=== PATIENT | female | born 1950 | race Caucasian/White ===

== ENCOUNTER 2018-09-20 07:17 | Day surgery (SDC) | payer OTHER, MEDICARE ==
[2018-09-20 07:51] VITALS: BMI 23.8
[2018-09-20 08:50] VITALS: TEMP 97.5
[2018-09-20 11:15] VITALS: BP 140/78; PULSE 60
--- NOTE | 2018-09-21 16:16 | PATH ---
Surgical Pathology Report Patient Name: YUKI HER [facility]. Rec. #: [id number] /Age/Gender: 1950 (Age: 68) / F Account: [id number] Location: U-ENDOSCOPY Taken: 09/20/2018 Received: 09/20/2018 Reported: 09/21/2018 Physicians: Michelet El M.D. Specimen(s) Received A: SECOND PORTION DUODENUM AND BULB B: GASTRIC FUNDUS AND BODY POLYPS C: ANTRUM D: GE JUNCTION E: RECTAL POLYP F: SIGMOID POLYPS Clinical History Occult bleeding, family history of gastric cancer, colon polyp surveillance Postoperative diagnosis: Hiatal hernia, gastric polyps, colon polyps Final Diagnosis A. DUODENUM, SECOND PORTION AND DUODENAL BULB, BIOPSY: DUODENAL MUCOSA WITHOUT SIGNIFICANT PATHOLOGIC FINDINGS. B. STOMACH, GASTRIC FUNDUS AND BODY POLYPS, BIOPSY: FUNDIC GLAND POLYP(S). IMMUNOHISTOCHEMICAL STAIN FOR H. PYLORI IS NEGATIVE. C. STOMACH, ANTRUM, BIOPSY: GASTRIC ANTRAL MUCOSA WITH MILD CHRONIC GASTRITIS. IMMUNOHISTOCHEMICAL STAIN FOR H. PYLORI IS NEGATIVE. D. GE JUNCTION, BIOPSY: SQUAMOCOLUMNAR MUCOSA WITH MODERATE CHRONIC INFLAMMATION AND CHANGES OF MODERATE REFLUX ESOPHAGITIS. NO INTESTINAL METAPLASIA OR DYSPLASIA IDENTIFIED. E. RECTAL POLYP, BIOPSY: HYPERPLASTIC POLYP. F. SIGMOID COLON, POLYPS, BIOPSY: HYPERPLASTIC POLYP(S). Electronically Signed Amelie Tovar M.D. Gross Description A. Received in formalin, labeled "biopsy second portion of duodenum and duodenal bulb" are 4 babb, irregular portions of soft tissue ranging from 0.2-0.4 cm. in greatest dimension. The specimens are submitted in toto in one cassette. B. Received in formalin, labeled "biopsy gastric fundus and body polyps" are 5 babb, irregular portions of soft tissue ranging from 0.1-0.5 cm. in greatest dimension. The specimens are submitted in toto in one cassette. C. Received in formalin, labeled "biopsy antrum" are 4 babb, irregular portions of soft tissue ranging from 0.2-0.4 cm. in greatest dimension. The specimens are submitted in toto in one cassette. D. Received in formalin, labeled "biopsy GE junction" are 2 babb, irregular portions of soft tissue averaging 0.4 cm. in greatest dimension. The specimens are submitted in toto in one cassette. E. Received in formalin, labeled "biopsy rectal polyp" are 2 babb, irregular portions of soft tissue averaging 0.3 cm. in greatest dimension. The specimens are submitted in toto in one cassette. F. Received in formalin, labeled "biopsy sigmoid polyps" are 3 babb, irregular portions of soft tissue ranging from 0.2-0.4 cm. in greatest dimension. The specimens are submitted in toto in one cassette. 09/20/2018 [facility]09/20/2018
== END 2018-09-20 09:55 | disposition home or self-care (01) ==
LOC: JASU-ENDO 07:17
PROVIDERS: ATTEND Internal Medicine Gastroenterology
PROC: 0DBN8ZX Excision of Sigmoid Colon, Via Natural or Artificial Opening Endoscopic, Diagnostic (ICD-10-PCS; 2018-09-20)
PROC: 0DB38ZX Excision of Lower Esophagus, Via Natural or Artificial Opening Endoscopic, Diagnostic (ICD-10-PCS; 2018-09-20)
PROC: 0DB68ZX Excision of Stomach, Via Natural or Artificial Opening Endoscopic, Diagnostic (ICD-10-PCS; 2018-09-20)
PROC: 0DBP8ZX Excision of Rectum, Via Natural or Artificial Opening Endoscopic, Diagnostic (ICD-10-PCS; principal; 2018-09-20 08:00)
DX: K62.1 Rectal polyp (principal); K92.1 Melena; K63.5 Polyp of colon; D12.5 Benign neoplasm of sigmoid colon; K21.9 Gastro-esophageal reflux disease without esophagitis; K44.9 Diaphragmatic hernia without obstruction or gangrene; K31.7 Polyp of stomach and duodenum; Z86.010 Personal history of colon polyps; Z80.0 Family history of malignant neoplasm of digestive organs
CPT/HCPCS: 88305-TC; 88342-TC

== ENCOUNTER 2023-09-23 04:42 | Day surgery (SDC) | payer OTHER, MEDICARE ==
[2023-09-16 08:49] VITALS: BMI 23.0
[2023-09-23 10:20] VITALS: TEMP 98
[2023-09-23 10:52] VITALS: BP 110/65; PULSE 62; RESP 12
== END 2023-09-23 11:35 | disposition home or self-care (01) ==
LOC: JASU-ENDO 04:42
PROVIDERS: ATTEND Internal Medicine Gastroenterology
PROC: 0DB98ZX Excision of Duodenum, Via Natural or Artificial Opening Endoscopic, Diagnostic (ICD-10-PCS; 2023-09-23)
PROC: 0DB78ZX Excision of Stomach, Pylorus, Via Natural or Artificial Opening Endoscopic, Diagnostic (ICD-10-PCS; 2023-09-23)
PROC: 0DB68ZX Excision of Stomach, Via Natural or Artificial Opening Endoscopic, Diagnostic (ICD-10-PCS; 2023-09-23)
PROC: 0DB48ZX Excision of Esophagogastric Junction, Via Natural or Artificial Opening Endoscopic, Diagnostic (ICD-10-PCS; 2023-09-23)
PROC: 0DB68ZX Excision of Stomach, Via Natural or Artificial Opening Endoscopic, Diagnostic (ICD-10-PCS; 2023-09-23)
PROC: 0DBK8ZX Excision of Ascending Colon, Via Natural or Artificial Opening Endoscopic, Diagnostic (ICD-10-PCS; principal; 2023-09-23 09:00)
DX: Z12.11 Encounter for screening for malignant neoplasm of colon (principal); D12.2 Benign neoplasm of ascending colon; K64.8 Other hemorrhoids; K21.00 Gastro-esophageal reflux disease with esophagitis, without bleeding; K44.9 Diaphragmatic hernia without obstruction or gangrene; K29.50 Unspecified chronic gastritis without bleeding; K31.7 Polyp of stomach and duodenum; Z86.010 Personal history of colon polyps; Z87.19 Personal history of other diseases of the digestive system; Z80.0 Family history of malignant neoplasm of digestive organs
CPT/HCPCS: 88305-TC; 88342-TC